=== PATIENT | female | born 1950 | race American Indian/Alaskan Native ===

== ENCOUNTER → 2017-03-14 16:55 | Outpatient (CLI) | payer OTHER ==
[2011-04-07 14:26] VITALS: BMI 30.6
== END | disposition home or self-care (01) ==
LOC: D.MAMMO 09:00
DX: Z12.31 Encounter for screening mammogram for malignant neoplasm of breast (principal)

== ENCOUNTER 2018-09-11 19:00 | Outpatient (CLI) | payer OTHER ==
[2011-04-07 14:26] VITALS: BMI 30.6
== END 2018-09-11 23:59 | disposition home or self-care (01) ==
LOC: D.MAMMO 19:00
DX: Z12.31 Encounter for screening mammogram for malignant neoplasm of breast (principal)

== ENCOUNTER → 2019-10-17 10:32 | Outpatient (CLI) | payer MEDICARE, OTHER ==
[2011-04-07 14:26] VITALS: BMI 30.6
== END | disposition home or self-care (01) ==
LOC: D.MRI 10:32
PROVIDERS: ATTEND Family Medicine
DX: M48.54XA Collapsed vertebra, not elsewhere classified, thoracic region, initial encounter for fracture (principal); M48.56XA Collapsed vertebra, not elsewhere classified, lumbar region, initial encounter for fracture